=== PATIENT | male | born 1965 | race Caucasian/White ===

== ENCOUNTER 2018-10-13 10:12 | Observation (INO) | payer OTHER ==
[2018-10-13] MEDS ORDERED: Aspirin 325 mg EC Tablets PO STA (11:17)
[2018-10-13 11:57] LABS: BASO # 0.1 K/uL (0.0-0.2); BASO % 1.4 % (0.0-2.0); EOS # 0.2 K/uL (0.0-0.7); EOS % 2.5 % (0.0-4.0); HEMOGLOBIN 15.1 g/dL (12.0-18.0); LYMPH # 3.1 K/uL (1.0-4.3); LYMPH % 43.8 % (20.0-40.0); MEAN CELL VOLUME 88.4 fL (80.0-94.0); MEAN CORPUSCULAR HEMOGLOBIN 30.3 pg (27.0-31.0); MEAN CORPUSCULAR HGB CONC 34.2 g/dL (33.0-37.0); MEAN PLATELET VOLUME 8.2 fL (7.2-11.7); MONO # 0.5 K/uL (0.0-0.8); MONO % 7.1 % (0.0-10.0); NEUT # 3.2 K/uL (1.8-7.0); NEUT % 45.2 % (50.0-75.0); NRBC % 0.1 % (0.0-2.0); RBC 4.98 Mil/uL (4.40-5.90); WHITE BLOOD COUNT 7.1 K/uL (4.8-10.8)
[2018-10-13 12:07] LABS: PROTHROMBIN TIME 10.6 SECONDS (9.7-12.2)
[2018-10-13 12:11] LABS: ALB/GLOB RATIO 1.3 (1.0-2.1); ALBUMIN 4.1 g/dL (3.5-5.0); ALT/SGPT 27 U/L (21-72); AST/SGOT 20 U/L (17-59); BLOOD UREA NITROGEN 11 mg/dL (9-20); CALCIUM 9.4 mg/dl (8.6-10.4); GFR NON-AFRICAN AMERICAN > 60
--- NOTE | 2018-10-13 14:12 | RAD ---
Date of service: 10/13/2018 PROCEDURE: CHEST RADIOGRAPH, 1 VIEW HISTORY: chest pain COMPARISON: None available. FINDINGS: LUNGS: Clear. PLEURA: No pneumothorax or pleural fluid seen. CARDIOVASCULAR: There is absence of aortic atherosclerotic calcification on x-ray. Heart size within normal limits. OSSEOUS STRUCTURES: Bilateral 1st coaster cartilaginous junctional prominent osseous and calcific hypertrophic changes noted VISUALIZED UPPER ABDOMEN: Normal. OTHER FINDINGS: None. IMPRESSION: No active disease.
--- NOTE | 2018-10-13 14:19 | C.PDOC ---
History Of Present Illness 52 y/o male with history of catherization and 1 stent placement in 2016 presents to ED with c/o dull left sided chest pain since yesterday. Patient has not had cardiac evaluation for more than 1 year. Patient compliant with HTN medication and denies fever, cough, chills, sob, nausea, vomiting or any other complaints at this time. Time Seen by Provider: 10/13/18 10:32 Chief Complaint (Nursing): Chest Pain History Per: Patient History/Exam Limitations: no limitations Onset/Duration Of Symptoms: Days Current Symptoms Are (Timing): Still Present Past Medical History Reviewed: Historical Data, Nursing Documentation, Vital Signs Vital Signs: Last Vital Signs Temp 97.9 F 10/13/18 10:25 Pulse 78 10/13/18 10:25 Resp 18 10/13/18 10:25 BP 143/87 10/13/18 10:25 Pulse Ox 98 10/13/18 10:25 - Medical History PMH: No Chronic Diseases Surgical History: No Surg Hx Family History: States: No Known Family Hx - Social History Hx Alcohol Use: Yes Hx Substance Use: No - Immunization History Hx Tetanus Toxoid Vaccination: No Hx Influenza Vaccination: Yes Hx Pneumococcal Vaccination: No Review Of Systems Constitutional: Negative for: Fever, Chills Cardiovascular: Positive for: Chest Pain Respiratory: Negative for: Cough, Shortness of Breath Gastrointestinal: Negative for: Nausea, Vomiting Skin: Negative for: Rash Physical Exam - Physical Exam Appears: Non-toxic, No Acute Distress Skin: Warm, Dry, No Rash Head: Atraumatic, Normacephalic Eye(s): bilateral: Normal Inspection Oral Mucosa: Moist Neck: Normal ROM, Supple Cardiovascular: Rhythm Regular Respiratory: Normal Breath Sounds, No Rales, No Rhonchi, No Wheezing Gastrointestinal/Abdominal: Soft, No Tenderness, No Guarding, No Rebound Extremity: Normal ROM, No Pedal Edema, Capillary Refill (<2 seconds) Neurological/Psych: Oriented x3, Normal Speech, Normal Cognition ED Course And Treatment - Laboratory Results Result Diagrams: 10/13/18 11:50 10/13/18 11:50 ECG: Interpreted By Me, Viewed By Me ECG Rhythm: Sinus Rhythm Rate From EC (BPM) O2 Sat by Pulse Oximetry: 98 (RA) Pulse Ox Interpretation: Normal Progress Note: Patient accepted to Dr. Fernandez service Disposition - Disposition Disposition: HOSPITALIZED Disposition Time: 12:30 Condition: STABLE - Clinical Impression Clinical Impression: Chest pain - Scribe Statement The provider has reviewed the documentation as recorded by the Marcelinaibjuliana Bearden All medical record entries made by the Marcelinaibe were at my direction and pe rsonally dictated by me. I have reviewed the chart and agree that the record accurately reflects my personal performance of the history, physical exam, medical decision making, and the department course for this patient. I have also personally directed, reviewed, and agree with the discharge instructions and disposition.
[2018-10-13 18:41] LABS: CK-MB 2.94 ng/mL (0.0-3.38)
[2018-10-13 22:22] LABS: HDL CHOLESTEROL 39 mg/dL (30-70); IRON 88 ug/dL (49-181)
[2018-10-13 22:33] LABS: % IRON SATURATION 25 (20-55); TOTAL IRON BINDING CAPACITY 348 ug/dL (250-450)
[2018-10-13 22:34] LABS: LDL CHOLESTEROL 86 mg/dL (0-129)
[2018-10-13 22:35] LABS: CK-MB 2.57 ng/mL (0.0-3.38)
[2018-10-13] MEDS: (Novolin R) Insulin Human Regular 100 units/ml vial SC SCH (23:10)
[2018-10-13] MEDS: Enoxaparin 30 mg Syringe SC SCH (23:10)
[2018-10-13 23:29] LABS: FOLATE > 20.0 ng/mL
--- NOTE | 2018-10-14 04:52 | HP ---
CHIEF COMPLAINT: Chest pain. HISTORY OF PRESENT ILLNESS: Mr. Mundo Jang is a 52-year-old male with a history of catheterization and one stent placement in 2016. He came to the emergency department with complaining of dull, left-sided chest pain since yesterday. The patient has not had cardiac evaluation for more than one year. The patient is compliant with blood pressure medication. Denies fevers or chills. No nausea, vomiting, or diarrhea. No hematuria. No headache. No dizziness. While the patient came in the ER, still has chest pain. PAST MEDICAL HISTORY: Coronary artery disease, hypertension. FAMILY HISTORY: Father and mother noncontributory. HABITS: No smoking. No drugs. Alcohol, yes. REVIEW OF SYSTEMS: The patient was seen and examined at the bedside. Looking comfortable. Mild chest pain. No fever. No chills. No hematuria or hematochezia. No headache or dizziness. PHYSICAL EXAMINATION: VITAL SIGNS: Temperature 97.9, pulse 78, respiratory rate 18, blood pressure 140/87. HEENT: Head normocephalic and atraumatic. Eyes PERRLA. Extraocular muscles intact. Conjunctivae clear. Nose patent. Mucous membranes moist. NECK: Supple. No carotid bruits. No JVD or thyromegaly. CHEST: Bilaterally symmetrical. HEART: S1 and S2 positive. LUNGS: Clear to auscultation. ABDOMEN: Soft. Bowel sounds present. No organomegaly. EXTREMITIES: No edema, no cyanosis. NEUROLOGIC: The patient is awake and alert. Moving all four extremities. No focal deficits. LABORATORY DATA: White blood cells 7.1, hemoglobin 15.1, hematocrit 44.1, platelet 252. Sodium 130, potassium 4, BUN 11, creatinine 0.7, glucose 168. ASSESSMENT AND PLAN: Mr. Mundo Jang is a 52-year-old male with hyperglycemia, coronary artery disease, hypertension. Came with chest pain. Cardiology consult was called. Cardiac enzymes x3 ordered. The patient has a history of diabetes mellitus. We will do hemoglobin A1c. Restarted home medications, Actos, aspirin, metformin, glipizide. For high blood pressure, start his Lopressor. Lovenox is given for deep venous thrombosis prophylaxis. He was taking Wellbutrin at home. Multiple vitamins restarted. We will do labs tomorrow, and we will readjust his medications. We will follow up. Jackie Fernandez MD
--- NOTE | 2018-10-14 06:25 | CP.PCM.CON ---
History of Present Illness - History of Present Illness History of Present Illness: 52 M with hx of CAD s/p stents, HTN and hyperlipidemia admitted for Unstable angina Scheduled for cardiac cath in am Check ECHO and continue CAD management Past Patient History - Past Social History Smoking Status: Heavy Smoker > 10 Cigarettes Daily - CARDIAC Hx Cardiac Disorders: Yes Other/Comment: Coronary Stent - ENDOCRINE/METABOLIC Hx Endocrine Disorders: Yes Hx Diabetes Mellitus Type 2: Yes - MUSCULOSKELETAL/RHEUMATOLOGICAL Hx Falls: No - PSYCHIATRIC Hx Substance Use: No - SURGICAL HISTORY Hx Surgeries: Yes Hx Cardiac Catheterization: Yes Meds Allergies/Adverse Reactions: Allergies Allergy/AdvReac Type Severity Reaction Status Date / Time No Known Allergies Allergy Verified 10/13/18 11:16 - Medications Medications: Current Medications Aspirin (Ecotrin) 81 mg PO DAILY [facility] Bupropion HCl (Wellbutrin Sr 150 Mg) 150 mg PO DAILY [facility] Cyanocobalamin (Vitamin B12 100 Mcg Tab) 500 mcg PO DAILY [facility] Enoxaparin Sodium (Lovenox) 30 mg SC Q12 [facility] Last Admin: 10/13/18 23:10 Dose: Not Given Famotidine (Pepcid) 40 mg PO DAILY [facility] Gabapentin (Neurontin) 100 mg PO HS [facility] Last Admin: 10/13/18 23:12 Dose: 100 mg Glipizide (Glucotrol) 5 mg PO ACB [facility] Insulin Human Regular (Novolin R) 0 unit SC [facility]; Protocol Last Admin: 10/13/18 23:10 Dose: Not Given Lisinopril (Zestril) 5 mg PO DAILY [facility] Metformin HCl (Glucophage) 500 mg PO BID [facility] Metoprolol Tartrate (Lopressor) 25 mg PO DAILY [facility] [id number] Ethyl Esters (Lovaza) 1 gm PO DAILY [facility] Pioglitazone HCl (Actos) 45 mg PO DAILY [facility] Results - Vital Signs Recent Vital Signs: Last Vital Signs Temp 98.1 F 10/13/18 23:27 Pulse 74 10/13/18 23:27 Resp 18 10/13/18 23:27 BP 132/82 10/13/18 23:27 Pulse Ox 95 10/13/18 23:27 - Labs Result Diagrams: 10/13/18 11:50 10/13/18 11:50 Labs: Laboratory Results - last 24 hr 10/13/18 10/13/18 10/13/18 11:50 11:50 11:50 WBC 7.1 RBC 4.98 Hgb 15.1 Hct 44.1 MCV 88.4 MCH 30.3 MCHC 34.2 RDW 13.0 Plt Count 252 MPV 8.2 Neut % (Auto) 45.2 L Lymph % (Auto) 43.8 H Russell % (Auto) 7.1 Eos % (Auto) 2.5 Baso % (Auto) 1.4 Neut # (Auto) 3.2 Lymph # (Auto) 3.1 Russell # (Auto) 0.5 Eos # (Auto) 0.2 Baso # (Auto) 0.1 PT 10.6 INR 1.0 APTT 35 H Sodium 138 Potassium 4.0 Chloride 101 Carbon Dioxide 24 Anion Gap 17 BUN 11 Creatinine 0.7 L Est GFR ( Amer) > 60 Est GFR (Non-Af Amer) > 60 POC Glucose (mg/dL) Random Glucose 188 H Hemoglobin A1c Calcium 9.4 Iron TIBC % Saturation Total Bilirubin 0.4 AST 20 ALT 27 Alkaline Phosphatase 79 Total Creatine Kinase CK-MB (Mass) Troponin I 0.0120 Total Protein 7.4 Albumin 4.1 Globulin 3.2 Albumin/Globulin Ratio 1.3 Triglycerides Cholesterol LDL Cholesterol Direct HDL Cholesterol Vitamin B12 Folate 10/13/18 10/13/18 10/13/18 18:05 18:40 21:36 WBC RBC Hgb Hct MCV MCH MCHC RDW Plt Count MPV Neut % (Auto) Lymph % (Auto) Russell % (Auto) Eos % (Auto) Baso % (Auto) Neut # (Auto) Lymph # (Auto) Russell # (Auto) Eos # (Auto) Baso # (Auto) PT INR APTT Sodium Potassium Chloride Carbon Dioxide Anion Gap BUN Creatinine Est GFR ( Amer) Est GFR (Non-Af Amer) POC Glucose (mg/dL) 161 H 340 H Random Glucose Hemoglobin A1c Calcium Iron TIBC % Saturation Total Bilirubin AST ALT Alkaline Phosphatase Total Creatine Kinase 112 CK-MB (Mass) 2.94 Troponin I < 0.0120 Total Protein Albumin Globulin Albumin/Globulin Ratio Triglycerides Cholesterol LDL Cholesterol Direct HDL Cholesterol Vitamin B12 Folate 10/13/18 10/13/18 10/13/18 22:06 22:06 22:06 WBC RBC Hgb Hct MCV MCH MCHC RDW Plt Count MPV Neut % (Auto) Lymph % (Auto) Russell % (Auto) Eos % (Auto) Baso % (Auto) Neut # (Auto) Lymph # (Auto) Russell # (Auto) Eos # (Auto) Baso # (Auto) PT INR APTT Sodium Potassium Chloride Carbon Dioxide Anion Gap BUN Creatinine Est GFR ( Amer) Est GFR (Non-Af Amer) POC Glucose (mg/dL) Random Glucose Hemoglobin A1c 11.9 H Calcium Iron 88 TIBC 348 % Saturation 25 Total Bilirubin AST ALT Alkaline Phosphatase Total Creatine Kinase 103 CK-MB (Mass) 2.57 Troponin I < 0.0120 Total Protein Albumin Globulin Albumin/Globulin Ratio Triglycerides 419 H Cholesterol 150 LDL Cholesterol Direct 86 HDL Cholesterol 39 Vitamin B12 796 Folate > 20.0
[2018-10-14 07:48] VITALS: RESP 20
[2018-10-14] MEDS ORDERED: Iodixanol 320 MG/ML 200 ML BOTTLE IV ONE (07:58)
[2018-10-14] MEDS ORDERED: Nitroglycerin 50mg in D5W 50 MG/250 ML BOTTLE IV ONE (08:00)
[2018-10-14] MEDS ORDERED: Verapamil 2 ML ONE (08:00)
[2018-10-14] MEDS: (Novolin R) Insulin Human Regular 100 units/ml vial SC SCH ×4 (08:07→21:24)
--- NOTE | 2018-10-14 09:16 | CP.PCM.PN ---
<Marina Watson - Last Filed: 10/14/18 10:05> Subjective - Date & Time of Evaluation Date of Evaluation: 10/14/18 Time of Evaluation: 09:10 - Subjective Subjective: Cardiology Follow Up Patient was seen and examined at bedside. Patient denied any current chest pain, shortness of breath or palpitations. Patient is for cardiac catherization now. Objective - Vital Signs/Intake and Output Vital Signs (last 24 hours): Temp Pulse Resp BP Pulse Ox 97.5 F L 67 20 156/90 H 97 10/14/18 07:00 10/14/18 07:19 10/14/18 07:00 10/14/18 07:00 10/14/18 07:00 - Medications Medications: Current Medications Aspirin (Ecotrin) 81 mg PO DAILY [facility] Bupropion HCl (Wellbutrin Sr 150 Mg) 150 mg PO DAILY [facility] Cyanocobalamin (Vitamin B12 100 Mcg Tab) 500 mcg PO DAILY [facility] Enoxaparin Sodium (Lovenox) 30 mg SC Q12 [facility] Last Admin: 10/13/18 23:10 Dose: Not Given Famotidine (Pepcid) 40 mg PO DAILY [facility] Gabapentin (Neurontin) 100 mg PO HS [facility] Last Admin: 10/13/18 23:12 Dose: 100 mg Glipizide (Glucotrol) 5 mg PO ACB [facility] Last Admin: 10/14/18 08:07 Dose: Not Given Insulin Human Regular (Novolin R) 0 unit SC [facility]; Protocol Last Admin: 10/14/18 08:07 Dose: Not Given Lisinopril (Zestril) 5 mg PO DAILY [facility] Metformin HCl (Glucophage) 500 mg PO BID [facility] Metoprolol Tartrate (Lopressor) 25 mg PO DAILY [facility] Nicotine (Nicoderm Cq) 1 patch TD DAILY [facility] Stop: 11/25/18 23:59 Last Admin: 10/14/18 07:30 Dose: 1 patch [id number] Ethyl Esters (Lovaza) 1 gm PO DAILY [facility] Pioglitazone HCl (Actos) 45 mg PO DAILY [facility] - Labs Labs: 10/13/18 11:50 10/13/18 11:50 PT 10.6 SECONDS (9.7-12.2) 10/13/18 11:50 INR 1.0 10/13/18 11:50 APTT 35 SECONDS (21-34) H 10/13/18 11:50 - Constitutional Appears: No Acute Distress - Head Exam Head Exam: NORMAL INSPECTION, NORMOCEPHALIC - Eye Exam Eye Exam: EOMI, Normal appearance, PERRL Pupil Exam: NORMAL ACCOMODATION - ENT Exam ENT Exam: Mucous Membranes Moist - Respiratory Exam Respiratory Exam: Decreased Breath Sounds, NORMAL BREATHING PATTERN - Cardiovascular Exam Cardiovascular Exam: +S1, +S2 - GI/Abdominal Exam GI & Abdominal Exam: Soft, Normal Bowel Sounds. absent: Distended, Tenderness - Extremities Exam Extremities Exam: Normal Inspection. absent: Pedal Edema, Tenderness - Neurological Exam Neurological Exam: Alert, Awake, Oriented x3 - Psychiatric Exam Psychiatric exam: Normal Affect, Normal Mood - Skin Skin Exam: Dry, Intact, Normal Color, Warm Assessment and Plan - Assessment and Plan (Free Text) Plan: Unstable Angina Hx Hypertension, HLD, Uncontrolled T2DM, CAD with 1 stent (2015), Tobacco Use Imaging: - EKG: NSR, no ST changes noted - ECHO: ordered, pending results - S/P Cardiac Catherization: Normal LVEF 60%, PDA (RCA) 95% stenosis, OM2 80% (small artery) Management: - Recommended Endo consult for uncontrolled diabetes - Continue with ASA, Lisinopril, Metoprolol, Crestor - Patient is for PCI placement of Sherie SILVESTRE on 10/15/18 at 11am Case discussed with Dr. Martinez, Marina Watson DO, PGY2 <Reji Martinez - Last Filed: 10/14/18 22:19> Objective - Vital Signs/Intake and Output Vital Signs (last 24 hours): Temp Pulse Resp BP Pulse Ox 97.8 F 75 20 145/88 100 10/14/18 15:50 10/14/18 15:50 10/14/18 15:50 10/14/18 15:50 10/14/18 16:00 - Medications Medications: Current Medications Aspirin (Ecotrin) 81 mg PO DAILY [facility] Last Admin: 10/14/18 11:21 Dose: Not Given Bupropion HCl (Wellbutrin Sr 150 Mg) 150 mg PO DAILY [facility] Last Admin: 10/14/18 11:00 Dose: Not Given Clopidogrel Bisulfate (Plavix) 75 mg PO DAILY [facility] Cyanocobalamin (Vitamin B12 100 Mcg Tab) 500 mcg PO DAILY [facility] Last Admin: 10/14/18 11:00 Dose: Not Given Dextrose (Dextrose 50% Inj) 0 ml IV STAT PRN; Protocol PRN Reason: Hypoglycemia Protocol Dextrose (Glutose 15) 0 gm PO ONCE PRN; Protocol PRN Reason: Hypoglycemia Protocol Enoxaparin Sodium (Lovenox) 30 mg SC Q12 [facility] Last Admin: 10/14/18 21:25 Dose: 30 mg Famotidine (Pepcid) 40 mg PO DAILY [facility] Last Admin: 10/14/18 11:00 Dose: Not Given Gabapentin (Neurontin) 100 mg PO HS [facility] Last Admin: 10/14/18 21:25 Dose: 100 mg Glucagon (Glucagen Diagnostic Kit) 0 mg IM STAT PRN; Protocol PRN Reason: Hypoglycemia Protocol Dextrose (Dextrose 5% In Water 1000 Ml) 1,000 mls @ 0 mls/hr IV .Q0M PRN; Protocol PRN Reason: Hypoglycemia Protocol Insulin Glargine (Lantus) 20 unit SC HS [facility] Insulin Human Regular (Novolin R) 0 unit SC ACHS [facility]; Protocol Last Admin: 10/14/18 21:24 Dose: Not Given Lisinopril (Zestril) 5 mg PO DAILY [facility] Last Admin: 10/14/18 11:00 Dose: Not Given Metoprolol Tartrate (Lopressor) 25 mg PO DAILY [facility] Last Admin: 10/14/18 11:00 Dose: Not Given Nicotine (Nicoderm Cq) 1 patch TD DAILY [facility] Stop: 11/25/18 23:59 Last Admin: 10/14/18 11:00 Dose: Not Given Pauhr-5-Ffka Ethyl Esters (Lovaza) 1 gm PO DAILY [facility] Last Admin: 10/14/18 11:00 Dose: Not Given Rosuvastatin Calcium (Crestor) 20 mg PO HS [facility] Last Admin: 10/14/18 21:25 Dose: 20 mg Sitagliptin Phosphate (Januvia) 100 mg PO DAILY [facility] - Labs Labs: 10/14/18 14:04 10/14/18 14:04 PT 11.2 SECONDS (9.7-12.2) 10/14/18 14:04 INR 1.0 10/14/18 14:04 APTT 35 SECONDS (21-34) H 10/13/18 11:50 Assessment and Plan - Assessment and Plan (Free Text) Plan: patient seen and evaluated personally by il Plan of care d/w the medical artist and as documented
[2018-10-14] MEDS ORDERED: Midazolam 2 MG/2 ML VIAL ONE (09:24)
[2018-10-14] MEDS ORDERED: Glucagon Recombinant 1 mg Inj IM PRN (09:48)
[2018-10-14] MEDS ORDERED: Dextrose 50% SYRINGE Inj (50 ml) IV PRN (09:48)
[2018-10-14] MEDS ORDERED: Sodium Chloride 0.9% 1,000 ML IV SCH (10:00)
[2018-10-14] MEDS: buPROPion SR 150 MG TABLET PO SCH (11:00)
[2018-10-14] MEDS: Enoxaparin 30 mg Syringe SC SCH ×2 (11:00→21:25)
[2018-10-14] MEDS: Omega-3-Acid Ethyl Esters 1 GM Cap PO SCH (11:00)
[2018-10-14] MEDS ORDERED: (Novolin R) Insulin Human Regular 100 units/ml vial SC SCH (11:30)
[2018-10-14 14:09] LABS: HEMOGLOBIN 14.2 g/dL (12.0-18.0); MEAN CELL VOLUME 88.8 fL (80.0-94.0); MEAN CORPUSCULAR HEMOGLOBIN 30.1 pg (27.0-31.0); MEAN CORPUSCULAR HGB CONC 33.9 g/dL (33.0-37.0); MEAN PLATELET VOLUME 8.3 fL (7.2-11.7); RBC 4.71 Mil/uL (4.40-5.90); RED CELL DISTRIBUTION WIDTH 13.1 % (11.5-14.5)
[2018-10-14 14:20] LABS: PROTHROMBIN TIME 11.2 SECONDS (9.7-12.2)
[2018-10-14 14:28] LABS: BLOOD UREA NITROGEN 11 mg/dL (9-20); CALCIUM 8.7 mg/dl (8.6-10.4); GFR NON-AFRICAN AMERICAN > 60; HDL CHOLESTEROL 37 mg/dL (30-70)
[2018-10-14 14:44] LABS: CK-MB 1.99 ng/mL (0.0-3.38); LDL CHOLESTEROL 103 mg/dL (0-129)
--- NOTE | 2018-10-14 16:06 | CP.PCM.CON ---
<Isaac Pollack - Last Filed: 10/14/18 16:06> History of Present Illness - History of Present Illness History of Present Illness: PGY-1 Pulmonology Consult note for Dr. Silvestre CC: Smoking cessation Patient is a 52 year old male with PMHx of CAD s/p stents, HTN, DM-2, and hyperlipidemia presenting with unstable angina. Patient had a cardiac cath which shows: RCA 95% stenosis and OM2 80%. Patient is for PCI placement of RCA, Sherie on 10/15/18 at 11am. Pulmonology was consulted for smoking cessation given patient's extensive smoking history. Patient denies fevers, chills, shortness of breath, cough, chest pain, abdominal pain, nausea, vomiting, diarrhea, or urinary complaints. 12 systems ROS reviewed and negative except stated in HPI. PMD: Dr. Fernandez PMHx: DM-2, HTN, HLD, CAD s/p stents PSHx: Cardiac stents Social Hx: 72 pack years smoking history, denies alcohol and drug use Family Hx: Denies Allergies: NKDA Review of Systems - Review of Systems All systems: reviewed and no additional remarkable complaints except Past Patient History - Past Social History Smoking Status: Heavy Smoker > 10 Cigarettes Daily - CARDIAC Hx Cardiac Disorders: Yes Other/Comment: Coronary Stent - ENDOCRINE/METABOLIC Hx Endocrine Disorders: Yes Hx Diabetes Mellitus Type 2: Yes - MUSCULOSKELETAL/RHEUMATOLOGICAL Hx Falls: No - PSYCHIATRIC Hx Substance Use: No - SURGICAL HISTORY Hx Surgeries: Yes Hx Cardiac Catheterization: Yes Meds Allergies/Adverse Reactions: Allergies Allergy/AdvReac Type Severity Reaction Status Date / Time No Known Allergies Allergy Verified 10/13/18 11:16 - Medications Medications: Current Medications Aspirin (Ecotrin) 81 mg PO DAILY [facility] Last Admin: 10/14/18 11:21 Dose: Not Given Bupropion HCl (Wellbutrin Sr 150 Mg) 150 mg PO DAILY [facility] Last Admin: 10/14/18 11:00 Dose: Not Given Clopidogrel Bisulfate (Plavix) 75 mg PO DAILY [facility] Cyanocobalamin (Vitamin B12 100 Mcg Tab) 500 mcg PO DAILY [facility] Last Admin: 10/14/18 11:00 Dose: Not Given Dextrose (Dextrose 50% Inj) 0 ml IV STAT PRN; Protocol PRN Reason: Hypoglycemia Protocol Dextrose (Glutose 15) 0 gm PO ONCE PRN; Protocol PRN Reason: Hypoglycemia Protocol Enoxaparin Sodium (Lovenox) 30 mg SC Q12 [facility] Last Admin: 10/14/18 11:00 Dose: Not Given Famotidine (Pepcid) 40 mg PO DAILY [facility] Last Admin: 10/14/18 11:00 Dose: Not Given Gabapentin (Neurontin) 100 mg PO [facility] Last Admin: 10/13/18 23:12 Dose: 100 mg Glucagon (Glucagen Diagnostic Kit) 0 mg IM STAT PRN; Protocol PRN Reason: Hypoglycemia Protocol Dextrose (Dextrose 5% In Water 1000 Ml) 1,000 mls @ 0 mls/hr IV .Q0M PRN; Protocol PRN Reason: Hypoglycemia Protocol Sodium Chloride (Sodium Chloride 0.9%) 1,000 mls @ 80 mls/hr IV .[id number] [facility] Stop: 10/14/18 22:01 Insulin Glargine (Lantus) 20 unit SC [facility] Insulin Human Regular (Novolin R) [address] [facility]; Protocol Last Admin: 10/14/18 12:55 Dose: 3 units Lisinopril (Zestril) 5 mg PO DAILY [facility] Last Admin: 10/14/18 11:00 Dose: Not Given Metoprolol Tartrate (Lopressor) 25 mg PO DAILY [facility] Last Admin: 10/14/18 11:00 Dose: Not Given Nicotine (Nicoderm Cq) 1 patch TD DAILY [facility] Stop: 11/25/18 23:59 Last Admin: 10/14/18 11:00 Dose: Not Given Dednj-6-Eadp Ethyl Esters (Lovaza) 1 gm PO DAILY [facility] Last Admin: 10/14/18 11:00 Dose: Not Given Rosuvastatin Calcium (Crestor) 20 mg PO [facility] Sitagliptin Phosphate (Januvia) 100 mg PO DAILY [facility] Physical Exam - Constitutional Appears: Well, Non-toxic, No Acute Distress - Head Exam Head Exam: ATRAUMATIC, NORMAL INSPECTION - Eye Exam Eye Exam: EOMI, Normal appearance Pupil Exam: PERRL - ENT Exam ENT Exam: Mucous Membranes Moist - Neck Exam Neck exam: Positive for: Normal Inspection - Respiratory Exam Respiratory Exam: Clear to Auscultation Bilateral, NORMAL BREATHING PATTERN. absent: Accessory Muscle Use, Decreased Breath Sounds, Rales, Rhonchi, Wheezes, Respiratory Distress, Stridor - Cardiovascular Exam Cardiovascular Exam: REGULAR RHYTHM, +S1, +S2. absent: Bradycardia, Tachycardia, Gallop, Rubs, Systolic Murmur - GI/Abdominal Exam GI & Abdominal Exam: Normal Bowel Sounds, Soft. absent: Tenderness - Extremities Exam Extremities exam: Positive for: normal inspection. Negative for: pedal edema - Neurological Exam Neurological exam: Alert, CN II-XII Intact, Normal Gait, Oriented x3 - Psychiatric Exam Psychiatric exam: Normal Affect, Normal Mood - Skin Skin Exam: Dry, Intact, Warm Additional comments: Hyperpigmentation on the face noted Results - Vital Signs Recent Vital Signs: Last Vital Signs Temp 97.8 F 10/14/18 15:50 Pulse 75 10/14/18 15:50 Resp 20 10/14/18 15:50 BP 145/88 10/14/18 15:50 Pulse Ox 100 10/14/18 15:50 - Labs Result Diagrams: 10/14/18 14:04 10/14/18 14:04 Labs: Laboratory Results - last 24 hr 10/13/18 10/13/18 10/13/18 18:05 18:40 21:36 WBC RBC Hgb Hct MCV MCH MCHC RDW Plt Count MPV PT INR Sodium Potassium Chloride Carbon Dioxide Anion Gap BUN Creatinine Est GFR ( Amer) Est GFR (Non-Af Amer) POC Glucose (mg/dL) 161 H 340 H Random Glucose Hemoglobin A1c Calcium Iron TIBC % Saturation Total Creatine Kinase 112 CK-MB (Mass) 2.94 Troponin I < 0.0120 Triglycerides Cholesterol LDL Cholesterol Direct HDL Cholesterol Vitamin B12 Folate TSH 3rd Generation 10/13/18 10/13/18 10/13/18 22:06 22:06 22:06 WBC RBC Hgb Hct MCV MCH MCHC RDW Plt Count MPV PT INR Sodium Potassium Chloride Carbon Dioxide Anion Gap BUN Creatinine Est GFR ( Amer) Est GFR (Non-Af Amer) POC Glucose (mg/dL) Random Glucose Hemoglobin A1c 11.9 H Calcium Iron 88 TIBC 348 % Saturation 25 Total Creatine Kinase 103 CK-MB (Mass) 2.57 Troponin I < 0.0120 Triglycerides 419 H Cholesterol 150 LDL Cholesterol Direct 86 HDL Cholesterol 39 Vitamin B12 796 Folate > 20.0 TSH 3rd Generation 10/14/18 10/14/18 10/14/18 06:30 10:15 14:04 WBC 7.0 RBC 4.71 Hgb 14.2 Hct 41.8 MCV 88.8 MCH 30.1 MCHC 33.9 RDW 13.1 Plt Count 212 MPV 8.3 PT INR Sodium Potassium Chloride Carbon Dioxide Anion Gap BUN Creatinine Est GFR ( Amer) Est GFR (Non-Af Amer) POC Glucose (mg/dL) 287 H 290 H Random Glucose Hemoglobin A1c Calcium Iron TIBC % Saturation Total Creatine Kinase CK-MB (Mass) Troponin I Triglycerides Cholesterol LDL Cholesterol Direct HDL Cholesterol Vitamin B12 Folate TSH 3rd Generation 10/14/18 10/14/18 14:04 14:04 WBC RBC Hgb Hct MCV MCH MCHC RDW Plt Count MPV PT 11.2 INR 1.0 Sodium 132 Potassium 4.1 Chloride 100 Carbon Dioxide 22 Anion Gap 15 BUN 11 Creatinine 0.7 L Est GFR ( Amer) > 60 Est GFR (Non-Af Amer) > 60 POC Glucose (mg/dL) Random Glucose 267 H Hemoglobin A1c Calcium 8.7 Iron TIBC % Saturation Total Creatine Kinase 81 CK-MB (Mass) 1.99 Troponin I < 0.0120 Triglycerides 332 H D Cholesterol 166 LDL Cholesterol Direct 103 HDL Cholesterol 37 Vitamin B12 Folate TSH 3rd Generation 0.70 Assessment & Plan - Assessment and Plan (Free Text) Assessment: Patient is a 52 year old male with PMHx of CAD s/p stents, HTN, DM-2, and hyperlipidemia presenting with unstable angina. Pulmonology was consulted for smoking cessation given patient's extensive smoking history. Plan: Tobacco abuse disorder - Nicotine patch - Pulmonary function test to be done as outpatient - Counseled patient on smoking cessation - Patient not complaining of shortness of breath Case discussed with Dr. Konrad Pollack, PGY-1 <Chance Silvestre S - Last Filed: 10/14/18 16:40> Meds - Medications Medications: Current Medications Aspirin (Ecotrin) 81 mg PO DAILY [facility] Last Admin: 10/14/18 11:21 Dose: Not Given Bupropion HCl (Wellbutrin Sr 150 Mg) 150 mg PO DAILY [facility] Last Admin: 10/14/18 11:00 Dose: Not Given Clopidogrel Bisulfate (Plavix) 75 mg PO DAILY [facility] Cyanocobalamin (Vitamin B12 100 Mcg Tab) 500 mcg PO DAILY [facility] Last Admin: 10/14/18 11:00 Dose: Not Given Dextrose (Dextrose 50% Inj) 0 ml IV STAT PRN; Protocol PRN Reason: Hypoglycemia Protocol Dextrose (Glutose 15) 0 gm PO ONCE PRN; Protocol PRN Reason: Hypoglycemia Protocol Enoxaparin Sodium (Lovenox) 30 mg SC Q12 [facility] Last Admin: 10/14/18 11:00 Dose: Not Given Famotidine (Pepcid) 40 mg PO DAILY [facility] Last Admin: 10/14/18 11:00 Dose: Not Given Gabapentin (Neurontin) 100 mg PO HS [facility] Last Admin: 10/13/18 23:12 Dose: 100 mg Glucagon (Glucagen Diagnostic Kit) 0 mg IM STAT PRN; Protocol PRN Reason: Hypoglycemia Protocol Dextrose (Dextrose 5% In Water 1000 Ml) 1,000 mls @ 0 mls/hr IV .Q0M PRN; Protocol PRN Reason: Hypoglycemia Protocol Sodium Chloride (Sodium Chloride 0.9%) 1,000 mls @ 80 mls/hr IV .[id number] [facility] Stop: 10/14/18 22:01 Insulin Glargine (Lantus) 20 unit SC [facility] Insulin Human Regular (Novolin R) 0 unit SC [facility]; Protocol Last Admin: 10/14/18 12:55 Dose: 3 units Lisinopril (Zestril) 5 mg PO DAILY [facility] Last Admin: 10/14/18 11:00 Dose: Not Given Metoprolol Tartrate (Lopressor) 25 mg PO DAILY [facility] Last Admin: 10/14/18 11:00 Dose: Not Given Nicotine (Nicoderm Cq) 1 patch TD DAILY [facility] Stop: 11/25/18 23:59 Last Admin: 10/14/18 11:00 Dose: Not Given Oxuiy-1-Gkvi Ethyl Esters (Lovaza) 1 gm PO DAILY [facility] Last Admin: 10/14/18 11:00 Dose: Not Given Rosuvastatin Calcium (Crestor) 20 mg PO HS [facility] Sitagliptin Phosphate (Januvia) 100 mg PO DAILY [facility] Results - Vital Signs Recent Vital Signs: Last Vital Signs Temp 97.8 F 10/14/18 15:50 Pulse 75 10/14/18 15:50 Resp 20 10/14/18 15:50 BP 145/88 10/14/18 15:50 Pulse Ox 100 10/14/18 15:50 - Labs Result Diagrams: 10/14/18 14:04 10/14/18 14:04 Labs: Laboratory Results - last 24 hr 10/13/18 10/13/18 10/13/18 18:05 18:40 21:36 WBC RBC Hgb Hct MCV MCH MCHC RDW Plt Count MPV PT INR Sodium Potassium Chloride Carbon Dioxide Anion Gap BUN Creatinine Est GFR ( Amer) Est GFR (Non-Af Amer) POC Glucose (mg/dL) 161 H 340 H Random Glucose Hemoglobin A1c Calcium Iron TIBC % Saturation Total Creatine Kinase 112 CK-MB (Mass) 2.94 Troponin I < 0.0120 Triglycerides Cholesterol LDL Cholesterol Direct HDL Cholesterol Vitamin B12 Folate TSH 3rd Generation 10/13/18 10/13/18 10/13/18 22:06 22:06 22:06 WBC RBC Hgb Hct MCV MCH MCHC RDW Plt Count MPV PT INR Sodium Potassium Chloride Carbon Dioxide Anion Gap BUN Creatinine Est GFR ( Amer) Est GFR (Non-Af Amer) POC Glucose (mg/dL) Random Glucose Hemoglobin A1c 11.9 H Calcium Iron 88 TIBC 348 % Saturation 25 Total Creatine Kinase 103 CK-MB (Mass) 2.57 Troponin I < 0.0120 Triglycerides 419 H Cholesterol 150 LDL Cholesterol Direct 86 HDL Cholesterol 39 Vitamin B12 796 Folate > 20.0 TSH 3rd Generation 10/14/18 10/14/18 10/14/18 06:30 10:15 14:04 WBC 7.0 RBC 4.71 Hgb 14.2 Hct 41.8 MCV 88.8 MCH 30.1 MCHC 33.9 RDW 13.1 Plt Count 212 MPV 8.3 PT INR Sodium Potassium Chloride Carbon Dioxide Anion Gap BUN Creatinine Est GFR ( Amer) Est GFR (Non-Af Amer) POC Glucose (mg/dL) 287 H 290 H Random Glucose Hemoglobin A1c Calcium Iron TIBC % Saturation Total Creatine Kinase CK-MB (Mass) Troponin I Triglycerides Cholesterol LDL Cholesterol Direct HDL Cholesterol Vitamin B12 Folate TSH 3rd Generation 10/14/18 10/14/18 10/14/18 14:04 14:04 16:21 WBC RBC Hgb Hct MCV MCH MCHC RDW Plt Count MPV PT 11.2 INR 1.0 Sodium 132 Potassium 4.1 Chloride 100 Carbon Dioxide 22 Anion Gap 15 BUN 11 Creatinine 0.7 L Est GFR ( Amer) > 60 Est GFR (Non-Af Amer) > 60 POC Glucose (mg/dL) 321 H Random Glucose 267 H Hemoglobin A1c Calcium 8.7 Iron TIBC % Saturation Total Creatine Kinase 81 CK-MB (Mass) 1.99 Troponin I < 0.0120 Triglycerides 332 H D Cholesterol 166 LDL Cholesterol Direct 103 HDL Cholesterol 37 Vitamin B12 Folate TSH 3rd Generation 0.70 Attending/Attestation - Attestation I have personally seen and examined this patient.: Yes I have fully participated in the care of the patient.: Yes I have reviewed all pertinent clinical information: Yes Notes (Text): 10/14/18 16:39 Patient seen and examined Patient with long history of smoking Status post cardiac cath Patient advised to quit smoking Pulmonary function test as outpatient Patient with history of obstructive sleep apnea status post surgery
[2018-10-14] MEDS ORDERED: (Lantus) Insulin Glargine, Recombinant SC SCH (22:00)
--- NOTE | 2018-10-15 03:28 | CON ---
DATE: 10/14/2018 ENDOCRINOLOGY CONSULTATION LOCATION: Room 569. HISTORY OF PRESENT ILLNESS: This is a 52-year-old male with known history of type 2 diabetes and hypertension with significant coronary artery disease and is now being referred for diabetic evaluation because of persistent hyperglycemic accelerations as noted thereof. PAST MEDICAL HISTORY: History of type 2 diabetes, currently on glipizide given as 5 mg daily and metformin at 500 mg b.i.d. with Actos of 45 mg once daily; history of hypertension and dyslipidemia; history of coronary artery disease with previous coronary stent placement. FAMILY HISTORY: Positive for diabetes and hypertension. SOCIAL HISTORY: The patient is a heavy smoker and has a supportive family otherwise. REVIEW OF SYSTEMS: Admits to occasional bouts of dizziness and lightheadedness with bifrontal headaches and visual blurring. Also admits to easy fatigability and tiredness with suboptimal energy level. Admits to episodic bouts of precordial chest pain with progressive shortness of breath especially on exertion. His oral intake has been variable, but otherwise improved with occasional bouts of polyuria, nocturia, and polydipsia. PHYSICAL EXAMINATION: GENERAL: This is an average-built male, in no apparent distress. VITAL SIGNS: Blood pressure 140/80, pulse of 70 beats per minute and regular, temperature 98, respirations 20. Height is 5 feet 9 inches. Weight is 215 pounds. HEENT: Head is normocephalic. Eyes: Anicteric with pink conjunctivae. Funduscopy is not possible at this time. Ears, nose, and throat otherwise normal. NECK: Supple. Thyroid gland is normal in size. No carotid bruits or cervical adenopathy. CARDIOPULMONARY: Some adynamic precordium. S1 and S2 are rapid and regular. LUNGS: Clear to auscultation. ABDOMEN: Flat, soft with positive bowel sounds. EXTREMITIES. No peripheral edema. Pulses are +2 bilaterally. LABORATORY DATA: Chemistry showed a BUN of 11, sodium 132, potassium 4.1, chloride of 100, CO2 of 22, glucose 267, and creatinine 0.7. His A1c is 11.9%. Triglycerides are 419, HDL is 39, LDL is 86. ASSESSMENT: This is a 52-year-old male with uncontrolled and decompensated type 2 insulin-requiring diabetes, previously on a triple oral hypoglycemic drug combination and most likely already has what recalled secondary pancreatic failure to oral hypoglycemic therapy and is clearly insulin requiring at this time if we have to optimize his metabolic control thereof. PLAN OF MANAGEMENT: We will discontinue his Actos and glipizide medications at this time. We will continue the metformin at 500 mg b.i.d. and consider addition of Januvia to 100 mg once daily. We will add basal insulin with Lantus to be given as 20 units subcu at bedtime daily as ordered. We will consider addition of prandial insulin hyperglycemic accelerations persist during the day as noted. We will obtain serial chemistries and supplement accordingly as needed. We will follow this. Ruby Clark MD
--- NOTE | 2018-10-15 05:17 | PN ---
DATE: 10/14/2018 SUBJECTIVE: The patient is 52 years old male. The patient was seen and examined at bedside on 10/14/2018, in the cath recovery room, was having tea, status post cath, looking better, wanted to smoke, nicotine patch given. No fever. No chills. At that time, no shortness of breath. No headache. No dizziness. No hematuria. No hematochezia. PHYSICAL EXAMINATION: VITAL SIGNS: Temperature 97.8, pulse 75, respiratory rate 20, blood pressure 145/88, pulse oximetry 100. HEENT: Head, normocephalic and atraumatic. Eyes, PERRLA. Extraocular muscles intact. Conjunctivae clear. Nose patent. Mucous membrane moist. NECK: Supple. No carotid bruit, JVD, or thyromegaly. CHEST: Bilaterally symmetrical. HEART: S1 and S2 positive. LUNGS: Clear to auscultation. ABDOMEN: Soft. Bowel sounds present. No organomegaly. EXTREMITIES: No edema. No cyanosis. NEUROLOGICAL: The patient is awake, alert, and moving all four extremities. No focal deficits. MEDICATIONS: Aspirin, Wellbutrin, Plavix, B12, Lovenox, Pepcid, gabapentin, glucagon, dextrose, insulin, Zestril, metoprolol, nicotine patch, Crestor, Januvia. LABORATORY DATA: Sodium 132, potassium 4.1, BUN 11, creatinine 0.7, glucose 267. White blood cells 7, hemoglobin 14.2, hematocrit 41.8, platelets 212. ASSESSMENT AND PLAN: Mr. Mundo Jang is a 52-year-old male with multiple medical problems, has history of coronary artery disease, status post stenting, hypertension, diabetes mellitus, hypercholesterolemia, came with unstable angina. The patient has history of smoking and nicotine patch given. Cardiac cath done today shows right coronary artery 95% stenosis and obtuse marginal II 80%. The patient is for percutaneous coronary intervention placement for right coronary artery at [facility], 10/15/2018 at 11 a.m. Discussion done with the patient, nursing staff, and discussion done with Dr. Martinez. Treatment plan made. The patient agrees. Repeat labs. We will follow up. Jackie Fernandez MD
--- NOTE | 2018-10-15 06:30 | CARD ---
APPROVED REPORT Date of service: 10/14/2018 EXAM: Two-dimensional and M-mode echocardiogram with Doppler and color Doppler. Other Information Quality : GoodRhythm : INDICATION Cardiac Disease: CAD Chest Pain RISK FACTORS Hyperlipidemia Diabetes 2D DIMENSIONS IVSd0.9 (0.7-1.1cm)LVDd4.5 (3.9-5.9cm) PWd1.0 (0.7-1.1cm)LA Lzxzpu24 (18-58mL) LVDs2.8 (2.5-4.0cm)FS (%) 39.2 % LVEF (%)69.8 (>50%)LVEF (Ellington's)65.76 % M-Mode DIMENSIONS Left Atrium (MM)3.35 (2.5-4.0cm)IVSd1.11 (0.7-1.1cm) Aortic Root4.03 (2.2-3.7cm)LVDd4.55 (4.0-5.6cm) Aortic Cusp Exc.2.75 (1.5-2.0cm)PWd0.92 (0.7-1.1cm) FS (%) 31 %LVDs3.16 (2.0-3.8cm) LVEF (%)58 (>50%) Mitral Valve MV E Xhsrtmkd27.2cm/sMV A Mhlpkdww32.8cm/sE/A ratio0.9 TDI Lateral E' Peak V8.80cm/sMedial E' Peak V5.06cm/sE/Lateral E'6.4 E/Medial E'11.1 LEFT VENTRICLE The left ventricle is normal size. There is normal left ventricular wall thickness. Left ventricle systolic function is normal. The Ejection Fraction is 65-70%. There is normal LV segmental wall motion. Tissue Doppler imaging reveals abnormal left ventricular diastolic dysfunction. RIGHT VENTRICLE The right ventricle is normal size. There is normal right ventricular wall thickness. The right ventricular systolic function is normal. ATRIA The left atrium size is normal. The right atrium size is normal. The interatrial septum is intact with no evidence for an atrial septal defect. AORTIC VALVE The aortic valve is normal in structure. No aortic regurgitation is present. There is no aortic valvular stenosis. MITRAL VALVE The mitral valve is normal in structure. There is no evidence of mitral valve prolapse. There is no mitral valve stenosis. There is no mitral valve regurgitation noted. TRICUSPID VALVE The tricuspid valve is normal in structure. There is no tricuspid valve regurgitation noted. There is no tricuspid valve prolapse or vegetation. There is no tricuspid valve stenosis. PULMONIC VALVE The pulmonic valve is not well visualized. There is no pulmonic valvular regurgitation. GREAT VESSELS The aortic root is normal in size. PERICARDIAL EFFUSION There is no significant pericardial effusion. <Conclusion> Left ventricle systolic function is normal. The Ejection Fraction is 65-70%. Diastolic dysfunction. No aortic regurgitation is present. There is no mitral valve regurgitation noted. There is no tricuspid valve regurgitation noted. There is no pulmonic valvular regurgitation.
[2018-10-15 07:41] LABS: BASO % 0.4 % (0.0-2.0); EOS # 0.3 K/uL (0.0-0.7); EOS % 4.1 % (0.0-4.0); HEMOGLOBIN 15.5 g/dL (12.0-18.0); LYMPH # 1.6 K/uL (1.0-4.3); LYMPH % 25.4 % (20.0-40.0); MEAN CELL VOLUME 89.2 fL (80.0-94.0); MEAN CORPUSCULAR HEMOGLOBIN 30.2 pg (27.0-31.0); MEAN CORPUSCULAR HGB CONC 33.8 g/dL (33.0-37.0); MEAN PLATELET VOLUME 8.5 fL (7.2-11.7); MONO # 0.3 K/uL (0.0-0.8); MONO % 5.4 % (0.0-10.0); NEUT # 4.1 K/uL (1.8-7.0); NEUT % 64.7 % (50.0-75.0); NRBC % 0.1 % (0.0-2.0); RBC 5.13 Mil/uL (4.40-5.90); WHITE BLOOD COUNT 6.3 K/uL (4.8-10.8)
[2018-10-15 08:12] LABS: ALB/GLOB RATIO 1.1 (1.0-2.1); ALBUMIN 3.4 g/dL (3.5-5.0); ALT/SGPT 29 U/L (21-72); AST/SGOT 19 U/L (17-59); BLOOD UREA NITROGEN 12 mg/dL (9-20); CALCIUM 8.7 mg/dl (8.6-10.4); GFR NON-AFRICAN AMERICAN > 60
[2018-10-15] MEDS: (Novolin R) Insulin Human Regular 100 units/ml vial SC SCH ×4 (08:30→21:23)
[2018-10-15] MEDS: Omega-3-Acid Ethyl Esters 1 GM Cap PO SCH ×2 (09:36→19:51)
[2018-10-15] MEDS: Enoxaparin 30 mg Syringe SC SCH (09:37)
[2018-10-15] MEDS: buPROPion SR 150 MG TABLET PO SCH ×2 (09:38→19:38)
--- NOTE | 2018-10-15 11:59 | CP.PCM.PN ---
Subjective - Date & Time of Evaluation Date of Evaluation: 10/15/18 Time of Evaluation: 11:57 - Subjective Subjective: Patient s/p PTCA of RCA (PDA) Plavix 75 daily for 1 year ASA 81, B blockers, Statins and BJ I for life Advised Healthy diet, smoking cessation, exercise and weight reduction Ambulate after 3pm today Resume diet IVF Check labs in am Objective - Vital Signs/Intake and Output Vital Signs (last 24 hours): Temp Pulse Resp BP Pulse Ox 97.6 F 84 20 110/66 100 10/15/18 07:00 10/15/18 07:13 10/15/18 07:00 10/15/18 07:00 10/15/18 07:20 Intake and Output: 10/15/18 10/15/18 06:59 18:59 Intake Total 1015 Balance 1015 - Medications Medications: Current Medications Aspirin (Ecotrin) 81 mg PO DAILY [facility] Last Admin: 10/15/18 09:06 Dose: 81 mg Bupropion HCl (Wellbutrin Sr 150 Mg) 150 mg PO DAILY [facility] Last Admin: 10/15/18 09:38 Dose: Not Given Clopidogrel Bisulfate (Plavix) 75 mg PO DAILY [facility] Last Admin: 10/15/18 09:06 Dose: 75 mg Cyanocobalamin (Vitamin B12 100 Mcg Tab) 500 mcg PO DAILY [facility] Last Admin: 10/15/18 09:38 Dose: Not Given Dextrose (Dextrose 50% Inj) 0 ml IV STAT PRN; Protocol PRN Reason: Hypoglycemia Protocol Dextrose (Glutose 15) 0 gm PO ONCE PRN; Protocol PRN Reason: Hypoglycemia Protocol Enoxaparin Sodium (Lovenox) 40 mg SC DAILY [facility] Famotidine (Pepcid) 40 mg PO DAILY [facility] Last Admin: 10/15/18 09:37 Dose: Not Given Fenofibrate (Tricor) 145 mg PO QPM [facility] Gabapentin (Neurontin) 100 mg PO HS [facility] Last Admin: 10/14/18 21:25 Dose: 100 mg Glucagon (Glucagen Diagnostic Kit) 0 mg IM STAT PRN; Protocol PRN Reason: Hypoglycemia Protocol Dextrose (Dextrose 5% In Water 1000 Ml) 1,000 mls @ 0 mls/hr IV .Q0M PRN; Protocol PRN Reason: Hypoglycemia Protocol Sodium Chloride (Sodium Chloride 0.9%) 1,000 mls @ 70 mls/hr IV .[id number] [facility] Insulin Glargine (Lantus) 20 unit SC [facility] Last Admin: 10/14/18 22:42 Dose: 20 units Insulin Human Regular (Novolin R) 0 unit SC [facility]; Protocol Last Admin: 10/15/18 08:30 Dose: 4 units Lisinopril (Zestril) 5 mg PO DAILY [facility] Last Admin: 10/15/18 09:38 Dose: Not Given Metoprolol Tartrate (Lopressor) 25 mg PO DAILY [facility] Last Admin: 10/15/18 09:36 Dose: Not Given Nicotine (Nicoderm Cq) 1 patch TD DAILY [facility] Stop: 11/25/18 23:59 Last Admin: 10/15/18 09:37 Dose: Not Given Ttfsc-3-Vtdl Ethyl Esters (Lovaza) 1 gm PO DAILY [facility] Last Admin: 10/15/18 09:36 Dose: Not Given Rosuvastatin Calcium (Crestor) 20 mg PO [facility] Last Admin: 10/14/18 21:25 Dose: 20 mg Sitagliptin Phosphate (Januvia) 100 mg PO DAILY [facility] Last Admin: 10/15/18 09:36 Dose: Not Given - Labs Labs: 10/15/18 07:37 10/15/18 07:37 PT 11.2 SECONDS (9.7-12.2) 10/14/18 14:04 INR 1.0 10/14/18 14:04 APTT 35 SECONDS (21-34) H 10/13/18 11:50
[2018-10-15] MEDS ORDERED: Sodium Chloride 0.9% 1,000 ML IV SCH (12:30)
[2018-10-15] MEDS ORDERED: (Lantus) Insulin Glargine, Recombinant SC SCH (22:00)
--- NOTE | 2018-10-15 22:36 | PN ---
DATE: 10/15/2018 ENDOCRINOLOGY FOLLOWUP NOTE LOCATION: In [address] [place] [address]. SUBJECTIVE: This is a 52-year-old male with recent uncontrolled type 2 insulin-requiring diabetes with marked hyperglycemic accelerations, presenting here with sudden onset of precordial chest pain and evaluated to have significant coronary occlusion as noted. He underwent a cardiac cath procedure today with subsequent percutaneous coronary angioplasty in the right coronary artery. His glycemic levels are fluctuating as noted with glucose values ranging from 282 to 319 and 321 mg/dL. LABORATORY DATA: His chemistry showed a BUN of 12, sodium 133, potassium 4, chloride 100, CO2 of 22, glucose 344, and creatinine 0.8. ASSESSMENT: This is a 52-year-old male with uncontrolled and decompensated type 2 insulin-requiring diabetes with marked hyperglycemic accelerations as noted thereof. He has significant coronary artery disease with recent percutaneous transluminal coronary angioplasty and stent placement in the right coronary artery as noted. PLAN OF MANAGEMENT: We will continue the modified basal and bolus insulin regimen as given. We will increase the Lantus to 30 units subcu at bedtime daily to start tonight. We will continue the Januvia given as 100 mg once daily as ordered. We will continue also the low-dose correction scale using NovoLog insulin as given. If hyperglycemic levels persist preprandially, then we may consider the addition of NovoLog insulin t.i.d. before each meal as ordered. We will consider the resumption of metformin therapy over the next day or so since he just underwent a coronary angiography procedure as noted. We will obtain serial chemistries and supplement accordingly as needed. We will follow. Ruby Clark MD
--- NOTE | 2018-10-16 05:13 | CARD ---
APPROVED REPORT Date of service: 10/13/2018 EKG Measurement Heart [id number] MA [id number] <Conclusion> Normal sinus rhythm Normal ECG
--- NOTE | 2018-10-16 05:22 | CARD ---
APPROVED REPORT Date of service: 10/13/2018 EKG Measurement Heart [id number] MS [id number] <Conclusion> Normal sinus rhythm Normal ECG
[2018-10-16 06:36] LABS: HEMOGLOBIN 14.7 g/dL (12.0-18.0); MEAN CELL VOLUME 87.8 fL (80.0-94.0); MEAN CORPUSCULAR HEMOGLOBIN 29.7 pg (27.0-31.0); MEAN CORPUSCULAR HGB CONC 33.9 g/dL (33.0-37.0); MEAN PLATELET VOLUME 8.3 fL (7.2-11.7); RBC 4.94 Mil/uL (4.40-5.90); RED CELL DISTRIBUTION WIDTH 13.2 % (11.5-14.5); WHITE BLOOD COUNT 6.4 K/uL (4.8-10.8)
[2018-10-16 06:49] LABS: BLOOD UREA NITROGEN 14 mg/dL (9-20); CALCIUM 8.7 mg/dl (8.6-10.4); GFR NON-AFRICAN AMERICAN > 60
[2018-10-16 07:32] VITALS: TEMP 98
[2018-10-16 07:39] VITALS: O2SAT 98
[2018-10-16] MEDS: (Novolin R) Insulin Human Regular 100 units/ml vial SC SCH ×2 (08:30→12:30)
[2018-10-16 09:01] VITALS: BP 106/67; PULSE 76
[2018-10-16] MEDS: Omega-3-Acid Ethyl Esters 1 GM Cap PO SCH (09:03)
--- NOTE | 2018-10-16 09:50 | CP.PCM.PN ---
<Marina Watson - Last Filed: 10/16/18 09:35> Subjective - Date & Time of Evaluation Date of Evaluation: 10/16/18 Time of Evaluation: 09:36 - Subjective Subjective: Cardiology Follow Up Patient was seen and examined at bedside. Patient denied any current chest pain, shortness of breath or palpitations. Objective - Vital Signs/Intake and Output Vital Signs (last 24 hours): Temp Pulse Resp BP Pulse Ox 98.0 F 76 20 106/67 98 10/16/18 07:00 10/16/18 09:01 10/16/18 07:00 10/16/18 09:03 10/16/18 07:37 Intake and Output: 10/16/18 10/16/18 06:59 18:59 Intake Total 830 Balance 830 - Medications Medications: Current Medications Aspirin (Ecotrin) 81 mg PO DAILY [facility] Last Admin: 10/16/18 09:03 Dose: 81 mg Bupropion HCl (Wellbutrin Sr 150 Mg) 150 mg PO DAILY [facility] Last Admin: 10/15/18 19:38 Dose: 150 mg Clopidogrel Bisulfate (Plavix) 75 mg PO DAILY [facility] Last Admin: 10/16/18 09:03 Dose: 75 mg Cyanocobalamin (Vitamin B12 100 Mcg Tab) 500 mcg PO DAILY [facility] Last Admin: 10/15/18 19:51 Dose: 500 mcg Dextrose (Dextrose 50% Inj) 0 ml IV STAT PRN; Protocol PRN Reason: Hypoglycemia Protocol Dextrose (Glutose 15) 0 gm PO ONCE PRN; Protocol PRN Reason: Hypoglycemia Protocol Enoxaparin Sodium (Lovenox) 40 mg SC DAILY [facility] Last Admin: 10/16/18 09:02 Dose: 40 mg Famotidine (Pepcid) 40 mg PO DAILY [facility] Last Admin: 10/16/18 09:03 Dose: 40 mg Fenofibrate (Tricor) 145 mg PO QPM [facility] Last Admin: 10/15/18 19:51 Dose: 145 mg Gabapentin (Neurontin) 100 mg PO HS [facility] Last Admin: 10/15/18 21:41 Dose: 100 mg Glucagon (Glucagen Diagnostic Kit) 0 mg IM STAT PRN; Protocol PRN Reason: Hypoglycemia Protocol Dextrose (Dextrose 5% In Water 1000 Ml) 1,000 mls @ 0 mls/hr IV .Q0M PRN; Protocol PRN Reason: Hypoglycemia Protocol Sodium Chloride (Sodium Chloride 0.9%) 1,000 mls @ 70 mls/hr IV .[id number] [facility] Last Admin: 10/16/18 03:00 Dose: Not Given Insulin Glargine (Lantus) 30 unit SC [facility] Last Admin: 10/15/18 21:41 Dose: 30 units Insulin Human Regular (Novolin R) 0 unit [facility]; Protocol Last Admin: 10/16/18 08:30 Dose: 4 units Lisinopril (Zestril) 5 mg PO DAILY [facility] Last Admin: 10/16/18 09:02 Dose: Not Given Metoprolol Tartrate (Lopressor) 25 mg PO DAILY [facility] Last Admin: 10/16/18 09:03 Dose: Not Given Nicotine (Nicoderm Cq) 1 patch TD DAILY [facility] Stop: 11/25/18 23:59 Last Admin: 10/16/18 09:03 Dose: 1 patch Ytnvf-8-Votw Ethyl Esters (Lovaza) 1 gm PO DAILY [facility] Last Admin: 10/16/18 09:03 Dose: 1 gm Rosuvastatin Calcium (Crestor) 20 mg PO [facility] Last Admin: 10/15/18 21:41 Dose: 20 mg Sitagliptin Phosphate (Januvia) 100 mg PO DAILY [facility] Last Admin: 10/16/18 09:03 Dose: 100 mg - Labs Labs: 10/16/18 06:28 10/16/18 06:28 PT 11.2 SECONDS (9.7-12.2) 10/14/18 14:04 INR 1.0 10/14/18 14:04 APTT 35 SECONDS (21-34) H 10/13/18 11:50 - Additional Findings Additional findings: - Constitutional Appears: No Acute Distress - Head Exam Head Exam: NORMAL INSPECTION, NORMOCEPHALIC - Eye Exam Eye Exam: EOMI, Normal appearance, PERRL Pupil Exam: NORMAL ACCOMODATION - ENT Exam ENT Exam: Mucous Membranes Moist - Respiratory Exam Respiratory Exam: Decreased Breath Sounds, NORMAL BREATHING PATTERN - Cardiovascular Exam Cardiovascular Exam: +S1, +S2 - GI/Abdominal Exam GI & Abdominal Exam: Soft, Normal Bowel Sounds. absent: Distended, Tenderness - Extremities Exam Extremities Exam: Normal Inspection. absent: Pedal Edema, Tenderness - Neurological Exam Neurological Exam: Alert, Awake, Oriented x3 - Psychiatric Exam Psychiatric exam: Normal Affect, Normal Mood - Skin Skin Exam: Dry, Intact, Normal Color, Warm Assessment and Plan - Assessment and Plan (Free Text) Plan: Unstable Angina S/P PTCA of RCA Hx Hypertension, HLD, Uncontrolled T2DM, CAD with 1 stent (2015), Tobacco Use Imaging: - EKG: NSR, no ST changes noted - ECHO: ordered, pending results - S/P Cardiac Catherization: Normal LVEF 60%, PDA (RCA) 95% stenosis, OM2 80% (small artery) - S/P PTCA of RCA Management: - Continue with ASA, Plavix x 1 year, Lisinopril, Metoprolol, Crestor - Counseled patient on healthy, low salt, low carb diet, exercise, weight loss, compliance with medication and smoking cessation - Follow up in 1 month Case discussed with Dr. Martinez, Marina Watson DO, PGY2 <Reji Martinez - Last Filed: 10/16/18 20:05> Objective - Vital Signs/Intake and Output Vital Signs (last 24 hours): Temp Pulse Resp BP Pulse Ox 98.0 F 76 20 106/67 98 10/16/18 07:00 10/16/18 09:01 10/16/18 07:00 10/16/18 09:03 10/16/18 12:00 - Labs Labs: 10/16/18 06:28 10/16/18 06:28 PT 11.2 SECONDS (9.7-12.2) 10/14/18 14:04 INR 1.0 10/14/18 14:04 APTT 35 SECONDS (21-34) H 10/13/18 11:50 Assessment and Plan - Assessment and Plan (Free Text) Plan: Patient seen and evaluated personally by me. Plan of care d/w the neuropsychology medical consultant and as documented
[2018-10-16] MEDS: buPROPion SR 150 MG TABLET PO SCH (09:57)
[2018-10-16] MEDS ORDERED: Enoxaparin 40 mg Syringe SC SCH (10:00)
--- NOTE | 2018-10-16 15:21 | CP.PCM.PN ---
Subjective - Date & Time of Evaluation Date of Evaluation: 10/16/18 Time of Evaluation: 11:00 - Subjective Subjective: alert and orientedx3, no sob or chest pains, NAD. Objective - Vital Signs/Intake and Output Vital Signs (last 24 hours): Temp Pulse Resp BP Pulse Ox 98.0 F 76 20 106/67 98 10/16/18 07:00 10/16/18 09:01 10/16/18 07:00 10/16/18 09:03 10/16/18 12:00 Intake and Output: 10/16/18 10/16/18 06:59 18:59 Intake Total 830 Balance 830 - Labs Labs: 10/16/18 06:28 10/16/18 06:28 PT 11.2 SECONDS (9.7-12.2) 10/14/18 14:04 INR 1.0 10/14/18 14:04 APTT 35 SECONDS (21-34) H 10/13/18 11:50 Assessment and Plan - Assessment and Plan (Free Text) Assessment: 52 YEAR old male post [employer] at [employer], seen and examined. Alert and orientedx3, ambulating. Denies sob or chest pains, NAD. Cleared by DR Martinez, discussed with DR Fernandez, plan to discharge home today. Patient has appointment tomorrow with his PMD to start with the insulin for uncontrolled DM. All meds called in to the [facility]. Patient verbalized understanding to follow up with the cardiologyst in 1 week.
--- NOTE | 2018-10-16 19:13 | PN ---
DATE: 10/16/2018 ENDOCRINOLOGY FOLLOWUP NOTE LOCATION: In room 569. SUBJECTIVE: This is a 52-year-old male with recent uncontrolled type 2 insulin-requiring diabetes, now being followed closely for metabolic management. He underwent a cardiac cath and subsequent percutaneous coronary angioplasty in the right coronary artery and is being scheduled for possible discharge today as noted. His glycemic levels are fluctuating, but improved and the glucose values have ranged from 278 to 286 mg/dL. The glucose level was high this morning at 304 mg/dL and there is a question of whether he was given the bedtime insulin dose as ordered. His chemistries show a BUN of 14, sodium 133, potassium 4.1, chloride 104, CO2 22, glucose 288, and creatinine 0.8. So at this time, we will recommend the modified and higher dosing of the Lantus as ordered last night, which was not documented as given at the same dosing of 30 units subcu at bedtime daily as ordered. We will continue the Januvia given as 100 mg daily and recommend resumption of metformin at 500 mg every 8 hours daily with outpatient diabetic and medical management. We will highly recommend that he follow with his medical doctor and milk route supervisor for ongoing diabetic and medical management as outpatient, especially with very poorly controlled glycemic profile as noted. Ruby Clark MD
--- NOTE | 2018-10-17 14:06 | PN ---
DATE: 10/15/2018 SUBJECTIVE: The patient is a 52-year-old male. The patient was seen and examined at bedside on 10/15/2018, and this progress note is for 10/15/2018. Actually, we went to see the patient in [facility]. At that time he came into [facility] for procedure. Then, I saw patient in [facility] Telemetry, looking great, ready to go back to [facility]. Hungry, wants to eat. No fever. No chills. No hematuria or hematochezia. No swelling of the leg. No chest pain. No palpitation. PHYSICAL EXAMINATION: VITAL SIGNS: Temperature 97.6, pulse 84, respiratory rate 20, blood pressure 110/66, pulse oximetry 100%. HEENT: Head, normocephalic and atraumatic. Eyes, PERRLA. Extraocular muscles are intact. Conjunctivae clear. Nose patent. Mucous membranes moist. NECK: Supple. No carotid bruits. No JVD or thyromegaly. CHEST: Bilaterally symmetrical. HEART: S1 and S2 positive. LUNGS: Clear to auscultation. ABDOMEN: Soft. Bowel sounds present. No organomegaly. EXTREMITIES: No edema. No cyanosis. NEUROLOGIC: The patient is awake and alert. Moving all four extremities. No focal deficits. MEDICATIONS: , Wellbutrin, Plavix, vitamin B12, dextrose, Lovenox, Pepcid, TriCor, Neurontin, Lantus, Zestril, Crestor. LABORATORY DATA: White blood cell 6.3, hemoglobin 15.5, hematocrit 45.8, platelet 223. Sodium 133, potassium 4, BUN 12, creatinine 0.8, glucose 344. ASSESSMENT AND PLAN: Mr. Mundo Jang is a 52-year-old male, status post percutaneous transluminal coronary angioplasty of right coronary artery, posterior descending artery. Plan is to continue Plavix and aspirin, advised healthy diet. Cessation of smoking. Exercise, and weight reduction, obesity. I reviewed Dr. Martinez's notes. The patient has uncontrolled diabetes mellitus; history of coronary artery disease, status post stenting in the past; also hypertension, hypercholesterolemia; had unstable angina;, nicotine patch given for smoking. Right coronary artery 95% stenosis. Continue present treatment and gastrointestinal and deep venous thrombosis prophylaxis, transferred to [facility] to do follow up there. Jackie Fernandez MD [facility] # [id number]
--- NOTE | 2018-10-18 18:46 | CARDCATH ---
PROCEDURE DATE: 10/14/2018 PROCEDURES: 1. Left heart catheterization. 2. Coronary angiogram. CLINICAL INDICATIONS: 1. Unstable angina. 2. History of coronary artery disease, status post stent. 3. Hypertension. 4. Diabetes. 5. Hyperlipidemia. REFERRING PHYSICIAN: Jackie Fernandez MD PERFORMING PHYSICIAN: Reji Martinez MD DESCRIPTION OF PROCEDURE: After informed consent, the patient was prepped and draped in the usual sterile fashion. A 2% lidocaine was given in the right wrist for local anesthesia. Using micropuncture technique, 6-Stateless sheath was introduced into the right radial artery. A JR-4 6-Stateless diagnostic catheter was inserted into left ventricle across the aortic valve. LV end diastolic pressures were measured. Contrast injected and LV angiogram was done. Then the catheter was pulled back into aorta. Gradient across the aortic valve was measured and the same catheter engaged into right coronary artery. Contrast injected and right coronary angiogram was done. Then the catheter was exchanged to 6-Stateless [place] catheter. The catheter engaged into left main coronary artery. Contrast injected and left coronary angiogram was done. The patient tolerated the procedure well. Postprocedure, Terumo radial band applied to right wrist with excellent hemostasis. Radiological supervision and radiological interpretation of the coronary imaging was done. FINDINGS: 1. Left main coronary artery is patent. 2. Proximal, mid, and distal left anterior descending is patent. Diagonal 1 artery has proximal 50% stenosis. 3. Left circumflex and obtuse marginal branches are patent. 4. Right coronary artery is dominant. Proximal right coronary artery has 30% to 40% stenosis. Posterior descending artery has 85% stenosis. Prior stent in the proximal right coronary artery is patent. 5. Left ventricular ejection fraction is approximately 60%. No wall motion abnormality is noted. EDP is 20%. No gradient across the aortic valve. IMPRESSION: 1. Single-vessel coronary artery disease as described above. Posterior descending artery has 85% stenosis. 2. Normal left ventricular systolic function. PLAN: The patient will be taken to [facility] for elective intervention of the PDA. Reji Martinez MD
== END 2018-10-16 14:09 | disposition home or self-care (01) ==
LOC: C.ER 10:12 → C.9E 12:38 → C.5S 16:50
PROVIDERS: ADMIT Internal Medicine; ATTEND Internal Medicine
DX: I25.110 Atherosclerotic heart disease of native coronary artery with unstable angina pectoris (principal); I10 Essential (primary) hypertension; E11.65 Type 2 diabetes mellitus with hyperglycemia; Z79.02 Long term (current) use of antithrombotics/antiplatelets; E78.5 Hyperlipidemia, unspecified; F17.200 Nicotine dependence, unspecified, uncomplicated; Z79.4 Long term (current) use of insulin; Z95.5 Presence of coronary angioplasty implant and graft; E66.9 Obesity, unspecified; E78.00 Pure hypercholesterolemia, unspecified
CPT/HCPCS: 36415; 71045; 80048; 80053; 80061; 82607; 82746; 82948; 83036; 83540; 83550; 83735; 84100; 84443; 84484; 85025; 85027; 85610; 85730; 93005; 93306; 93458; 99152; 99153; 99285; C1769; C1887; C1894; G0378; J1644; J1650; J2001; J2250; J3010; J7030; J7070; Q9966